=== PATIENT | male | born 2000 | race Caucasian/White ===

== ENCOUNTER 2024-05-24 00:02 | Emergency (ER) | payer OTHER ==
[2024-05-24] MEDS ORDERED: FENTANYL CITR 100 MCG/2 ML ONE ×2 (00:18→02:38)
[2024-05-24] MEDS ORDERED: TDAP (DIPHTH,PERTUSS(ACELL),TET VAC) 0.5 ML VIAL IMVAC ONE (00:19)
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
[2024-05-24 02:01] LABS: Absolute Lymphocytes (CBC) 0.7 K/uL (0.7-4.9); Absolute Monocytes 1.1 K/uL (0.1-1.3); Absolute Neutrophil 12.8 K/uL (1.8-8.0); Basophils % 0.2 % (0-1.3); Eosinophils % 0.1 % (0-4.4); Hematocrit 44.4 % (39.6-49.0); Hemoglobin 15.2 g/dL (13.6-17.9); Lymphocytes % 4.9 % (15.3-44.8); MCH 31.4 pg (27.0-35.0); MCHC 34.3 g/dL (32.0-36.0); MCV 91.5 fL (80-100); MPV 7.6 fL (7.6-11.3); Monocytes % 7.4 % (3.3-12.3); Neutrophils % 87.4 % (41.7-73.7); Platelets 227 thou/uL (152-406); RBC Red Blood Cell Count 4.86 M/uL (4.33-5.43); Red Cell Distribution Width 12.7 % (12.1-15.2)
[2024-05-24 02:18] LABS: Anion Gap 9.6 mEq/L (5.0-15.0)
[2024-05-24 02:21] LABS: Potassium 4.6 mEq/L (3.5-5.1)
[2024-05-24] MEDS ORDERED: DERMABOND SKIN ADHESIVE TOP ONE (02:48)
[2024-05-24] MEDS ORDERED: LIDOCAINE 1% 20 ML MDV ONE (02:48)
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
[2024-05-24 03:49] VITALS: BP 119/83; TEMP 98.3; O2SAT 99
[2024-05-24 04:42] LABS: Band Neutrophils 31 % (0-1); Blood Morphology Comment NOT SEEN (NOT SEEN); Differential Total Cells Count 100; Lymphocytes 5 % (15-42); Metamyelocytes 1 % (0-0); Monocytes 6 % (0-10); Platelet Estimate ADEQ; Reactive Lymphocytes 3 %; Segmented Neutrophils 54 % (40-80)
--- NOTE | 2024-05-24 06:44 | RAD REPORT ---
TIME OF STUDY: 05/24/2024 12:12 AM CDT REASON FOR EXAM: traum COMPARISON: None. FINDINGS: AP view of the chest was obtained, chest 1 view. Lungs: Normal lung volume. No mass, or consolidation. Normal pulmonary vascularity.. Pleura: No pneumothorax. There is no pleural effusion. Heart and Mediastinum: Normal cardiomediastinal silhouette and great vessels.. Bones: No acute bony abnormality.. IMPRESSION: 1. No acute cardiopulmonary process. Electronically signed by: Donald Méndez MD 05/24/2024 01:20 AM CDT RP Due to temporary technical issues with the PACS/[employer] reporting system, reports are being sigrid d by the in-house radiologist without review as a courtesy to ensure prompt reporting. The interpreting radiologist is fully responsible for the content of the report. Transcribed Date/Time: 05/24/2024 6:44 AM
== END 2024-05-24 03:41 | disposition home or self-care (01) ==
LOC: ER 00:02
DX: S02.2XXA Fracture of nasal bones, initial encounter for closed fracture (principal); S02.32XA Fracture of orbital floor, left side, initial encounter for closed fracture; S02.40DA Maxillary fracture, left side, initial encounter for closed fracture; S01.112A Laceration without foreign body of left eyelid and periocular area, initial encounter; W50.0XXA Accidental hit or strike by another person, initial encounter
CPT/HCPCS: 85025; 80048; 36415; 70450; 72125; 70486; 76377; 71045; 96372; 96374; 99284; 12051; J2003; J3010 ×2